=== PATIENT | male | born 1955 | race Caucasian/White ===

== ENCOUNTER 2018-05-28 06:45 | Emergency (ER) | payer MEDICAID ==
[~2018-05-28] VITALS: Ht 180.3 cm; Wt 75.0 kg
[2018-05-28 06:49] VITALS: BP 128/80
== END 2018-05-28 09:36 | disposition home or self-care (01) ==
LOC: ER 06:45
DX: S00.91XA Abrasion of unspecified part of head, initial encounter (principal); G89.29 Other chronic pain; F12.90 Cannabis use, unspecified, uncomplicated; W18.39XA Other fall on same level, initial encounter; Y93.89 Activity, other specified; Y92.89 Other specified places as the place of occurrence of the external cause; Y99.8 Other external cause status
CPT/HCPCS: 70450; 99284

== ENCOUNTER 2019-05-24 14:27 | Emergency (ER) | payer MEDICARE, MEDICAID ==
[~2019-05-24] VITALS: Ht 177.8 cm; Wt 70.5 kg
[~2019-05-24 14:27] MED LIST: CEPH250T PO; DIPH25CA83 PO; FAMO40TA73 PO; PRED10TA23 PO
[2019-05-24 14:50] VITALS: BP 110/67
== END 2019-05-24 15:02 | disposition home or self-care (01) ==
LOC: ER 14:28
DX: L08.89 Other specified local infections of the skin and subcutaneous tissue (principal); L23.7 Allergic contact dermatitis due to plants, except food; G89.29 Other chronic pain; F12.90 Cannabis use, unspecified, uncomplicated; Z79.899 Other long term (current) drug therapy
CPT/HCPCS: 99284

== ENCOUNTER 2019-06-28 10:22 | Emergency (ER) | payer MEDICARE, MEDICAID ==
[~2019-06-28] VITALS: Ht 180.3 cm; Wt 65.9 kg
[~2019-06-28 10:22] MED LIST changes: -CEPH250T PO; -PRED10TA23 PO
[2019-06-28 10:58] VITALS: BP 164/125
[2019-06-28] MEDS ORDERED: ketorolac trometh inj. 60 MG/2 ML VIAL IM ONE (12:15)
[2019-06-28] MEDS ORDERED: orphenadrine citrate 60mg/2ml inj. IM ONE (12:15)
[2019-06-28] MEDS ORDERED: HYDR-4353 PO (12:27)
[2019-06-28] MEDS ORDERED: ORPH100T2 PO (12:27)
[2019-06-28] MEDS ORDERED: IBUP-1986 PO (12:27)
== END 2019-06-28 12:39 | disposition home or self-care (01) ==
LOC: ER 10:23
DX: M54.5 Low back pain (principal); G89.29 Other chronic pain; F12.90 Cannabis use, unspecified, uncomplicated; Z79.899 Other long term (current) drug therapy
CPT/HCPCS: 96372; 99284; J1885; J2360